=== PATIENT | male | born 1990 | race Caucasian/White ===

== ENCOUNTER 2022-06-18 19:30 | Emergency (ER) | payer MEDICAID ==
[2022-06-18] MEDS ORDERED: SODIUM CHLORIDE IV ONE (21:17)
[2022-06-18] MEDS ORDERED: PENICILLIN POTASSIUM IV ONE (21:17)
[2022-06-18] MEDS ORDERED: Dexamethasone 4 MG/ML SDV PO ONE (21:18)
[2022-06-18 21:43] VITALS: BP 131/83; PULSE 112
[2022-06-18] MEDS ORDERED: Penicillin G Benzathine 1,200,000 Units/2 ML Syringe IM ONE (21:47)
== END 2022-06-18 22:21 | disposition home or self-care (01) ==
LOC: JP.ED 19:30
DX: J02.0 Streptococcal pharyngitis (principal); Z79.899 Other long term (current) drug therapy; Z88.8 Allergy status to other drugs, medicaments and biological substances; Z20.822 Contact with and (suspected) exposure to COVID-19
CPT/HCPCS: 87635; 87880; 96372; 99283; J0561; J8540; U0002

== ENCOUNTER 2023-10-29 05:03 | Emergency (ER) | payer MEDICAID, OTHER ==
[2023-10-29 05:24] VITALS: BP 121/84; PULSE 91
== END 2023-10-29 05:35 | disposition home or self-care (01) ==
LOC: JP.ED 05:03
DX: H66.92 Otitis media, unspecified, left ear (principal); Z88.8 Allergy status to other drugs, medicaments and biological substances
CPT/HCPCS: 99282; 99283

== ENCOUNTER 2024-07-06 20:31 | Emergency (ER) | payer MEDICAID, OTHER ==
[2024-07-06 20:44] VITALS: BP 117/80; PULSE 76
[2024-07-06 21:26] LABS: STREP A BY PCR NOT DETECTED (NOT DETECT)
[2024-07-06 21:40] LABS: CORONAVIRUS COVID-19 NAA NEGATIVE (NEGATIVE); INFLUENZA A NAA NEGATIVE (NEGATIVE); INFLUENZA B NAA NEGATIVE (NEGATIVE); RESPIRATORY SYNCYTIAL VIR NAA NEGATIVE (NEGATIVE)
== END 2024-07-06 22:15 | disposition home or self-care (01) ==
LOC: JP.ED 20:31
DX: J06.9 Acute upper respiratory infection, unspecified (principal); B97.89 Other viral agents as the cause of diseases classified elsewhere; B30.9 Viral conjunctivitis, unspecified; Z88.8 Allergy status to other drugs, medicaments and biological substances
CPT/HCPCS: 0241U; 87651; 99283